=== PATIENT | male | born 1960 | race Caucasian/White ===

== ENCOUNTER 2019-12-07 09:17 | Day surgery (SDC) | payer OTHER ==
[~2019-12-07] VITALS: Ht 193 cm; Wt 148.5 kg
[~2019-12-07 09:17] MED LIST: BUPIVACAINE/PF 0.25% ONE; EPINEPHRINE 1 MG/ML, 1ML ONE; ROPIvacaine/PF 0.5%, 30 ML ONE
[2019-12-07] MEDS ORDERED: MIDAZOLAM 1 MG/ML, 2ML ONE (09:19)
[2019-12-07] MEDS ORDERED: FENTANYL PF 100 MCG/2ML ONE ×3 (09:19→12:07)
[2019-12-07] MEDS ORDERED: CHLORHEXIDINE 15 ML UDC MM STA (09:52)
[2019-12-07 09:57] VITALS: BP 150/98
[2019-12-07] MEDS ORDERED: TADA5TAB2 PO (09:57)
[2019-12-07] MEDS ORDERED: FLEC100T PO (09:57)
[2019-12-07] MEDS ORDERED: LOSA100T14 PO (09:57)
[2019-12-07] MEDS ORDERED: MAGN100T6 PO (09:57)
[2019-12-07] MEDS ORDERED: ESOM40CA PO (09:57)
[2019-12-07] MEDS ORDERED: ASPI-515 PO (09:57)
[2019-12-07 10:03] VITALS: BP 150/98
[2019-12-07] MEDS ORDERED: LACTATED RINGERS 1,000 ML IV ONE (10:04)
[2019-12-07 10:06] LABS: BASOPHILS # (AUTO) 0.13 x10^3/uL (0-0.1); BASOPHILS % (AUTO) 1 % (0-1); EOSINOPHILS # (AUTO) 0.03 x10^3/uL (0-0.4); EOSINOPHILS % (AUTO) 0 % (1-7); LYMPHOCYTES # (AUTO) 1.62 x10^3/uL (1-3.4); LYMPHOCYTES % (AUTO) 15 % (22-44); MD NO; MEAN CORPUSCULAR HEMOGLOBIN 31.2 pg (27.5-34.5); MEAN CORPUSCULAR HGB CONC 33.8 g/dL (33.2-36.2); MEAN CORPUSCULAR VOLUME 92.3 fL (81-97); MEAN PLATELET VOLUME 8.8 fL (7.4-10.4); MONOCYTES # (AUTO) 0.94 x10^3/uL (0.2-0.8); MONOCYTES % (AUTO) 9 % (2-9); NEUTROPHILS # (AUTO) 8.07 x10^3/uL (1.8-6.8); NEUTROPHILS % (AUTO) 75 % (42-75); PLATELET COUNT 270 x10^3/uL (130-400); RED BLOOD COUNT 5.46 x10^6/uL (4.38-5.82); RED CELL DISTRIBUTION WIDTH 15.1 % (9.4-14.8)
[2019-12-07 10:14] LABS: ALANINE AMINOTRANSFERASE 49 U/L (12-78); ALBUMIN 3.7 g/dL (3.4-5.0); ANION GAP 4 mmol/L (5-15); CALCIUM 9.4 mg/dL (8.5-10.1); CHLORIDE 108 mmol/L (98-107); CREATININE 1.09 mg/dL (0.7-1.3)
[2019-12-07 10:17] LABS: ALKALINE PHOSPHATASE 71 U/L (45-117); BILIRUBIN,TOTAL 0.5 mg/dL (0.2-1.0); TOTAL PROTEIN 7.1 g/dL (6.4-8.2)
[2019-12-07] MEDS ORDERED: LIDOCAINE/PF 1%-EPI 1:200K, 30 ML ONE (10:23)
[2019-12-07] MEDS ORDERED: ROPIvacaine/PF 0.5%, 30 ML INFIL ONE (10:56)
[2019-12-07] MEDS ORDERED: LIDOCAINE 1%-EPI 1:100K, 30ML INFIL ONE (10:57)
[2019-12-07] MEDS ORDERED: hydrALAzine 20 MG/ML, 1ML IV PRN (11:00)
[2019-12-07] MEDS ORDERED: PROMETHAZINE 25 MG/ML, 1ML IVPush PRN (11:00)
[2019-12-07] MEDS ORDERED: LABETALOL 5MG/ML, 20ML IV PRN (11:00)
[2019-12-07] MEDS ORDERED: MIDAZOLAM 1 MG/ML, 2ML IV PRN (11:00)
[2019-12-07] MEDS ORDERED: OXYcodone 5 MG/5 ML ORAL.SOL UDC PO PRN (11:00)
[2019-12-07] MEDS ORDERED: ACETAMINOPHEN 325 MG TABLET PO PRN (11:00)
[2019-12-07] MEDS ORDERED: PROPOFOL 10 MG/ML, 20ML ONE ×2 (11:09→11:10)
[2019-12-07] MEDS ORDERED: DEXAMETHASONE 4 MG/ML, 1ML ONE (11:09)
[2019-12-07] MEDS ORDERED: ONDANSETRON 2MG/ML, 2ML ONE (11:09)
[2019-12-07] MEDS ORDERED: CEFAZOLIN 1,000 MG ONE ×2 (11:09→11:10)
[2019-12-07] MEDS ORDERED: KETOROLAC 30 MG/1 ML ONE (11:10)
[2019-12-07] MEDS ORDERED: OXYcodone 5 MG/5 ML ORAL.SOL UDC ONE (11:31)
[2019-12-07] MEDS: FENTANYL PF 100 MCG/2ML IV PRN ×3 (11:32→12:09)
[2019-12-07] MEDS ORDERED: hydrALAzine 20 MG/ML, 1ML ONE (11:34)
[2019-12-07] MEDS ORDERED: HYDROmorphone 1 MG/ML, 1ML INJ ONE (11:45)
[2019-12-07] MEDS: HYDROmorphone 1 MG/ML, 1ML INJ IVPush PRN ×2 (11:53→11:59)
== END 2019-12-07 14:50 | disposition home or self-care (01) ==
LOC: OUT 09:17
PROVIDERS: ATTEND Orthopaedic Surgery
DX: S83.232A Complex tear of medial meniscus, current injury, left knee, initial encounter (principal); Z20.828 Contact with and (suspected) exposure to other viral communicable diseases; M22.42 Chondromalacia patellae, left knee; M65.862 Other synovitis and tenosynovitis, left lower leg; I10 Essential (primary) hypertension; I48.0 Paroxysmal atrial fibrillation; N40.0 Benign prostatic hyperplasia without lower urinary tract symptoms; G47.33 Obstructive sleep apnea (adult) (pediatric); E66.01 Morbid (severe) obesity due to excess calories; Z79.82 Long term (current) use of aspirin; Z79.899 Other long term (current) drug therapy; Z88.2 Allergy status to sulfonamides; Z88.8 Allergy status to other drugs, medicaments and biological substances; Z91.040 Latex allergy status; X58.XXXA Exposure to other specified factors, initial encounter; Y93.89 Activity, other specified; Y92.89 Other specified places as the place of occurrence of the external cause; Y99.8 Other external cause status
CPT/HCPCS: 29881; 36415; 80053; 85025; 87635; J0360; J0690; J1100; J1170; J1885; J2250; J2405; J2704; J2795; J3010; J3490; J7120; J0171